=== PATIENT | female | born 1935 | race African-American/Black ===

== ENCOUNTER 2017-02-05 20:50 | Emergency (ER) | payer MEDICARE ==
[~2017-02-05] VITALS: Ht 165.1 cm; Wt 90.0 kg
[~2017-02-05 20:50] MED LIST: ACYC1CAP16 PO; ASPI325T PO; DILT240C7 PO; GABA300 PO; HYDR-3533 PO; PROT40TA PO; SPIR25TA PO
[2017-02-05 20:52] VITALS: BP 183/91; PULSE 67; RESP 18; TEMP 98.9; O2SAT 96
--- NOTE | 2017-02-05 21:32 | PD ---
Physical Exam Date Seen by Provider: Feb 05, 2017 Time Seen by Provider: 21:23 Narrative 82 YOBF C/O L LEG SWELLING AND PAIN. ALSO L GROIN PAIN FOR 3 DAYS. NO CP/SOB OR PALP. NO TRAUMA. H/O SAME WITH DVT 4YRS AGO VS NOTED. PT AWAITING BED PLACEMENT. Data Data Last Documented VS Vital Signs Date Time Temp Pulse Resp B/P Pulse Ox O2 Delivery O2 Flow Rate FiO2 02/05/17 20:52 98.9 67 18 183/91 96 Room Air [facility] Medical Record Reviewed: Yes Supervised Visit with MATTHEW: Yes Luis Alfredo Medina Feb 05, 2017 21:32
[2017-02-05 22:28] VITALS: BP 175/89
[2017-02-05] MEDS ORDERED: SPIR25TA PO (22:37)
[2017-02-05] MEDS ORDERED: CART240C PO (22:37)
[2017-02-05] MEDS ORDERED: CLON0.1T PO (22:37)
[2017-02-05] MEDS ORDERED: ASPI81CH CHEW (22:37)
[2017-02-05 23:07] LABS: AUTOMATED NEUTROPHIL # 2.7 TH/MM3 (1.8-7.7); BASOPHIL % 0.5 % (0.0-2.0); EOSINOPHIL # 0.1 TH/MM3 (0-0.4); EOSINOPHIL % 1.9 % (0.0-4.0); HEMATOCRIT 34.9 % (35.0-46.0); HEMO FLAGS DIFF FINAL; LYMPH % 38.4 % (9.0-44.0); LYMPHOCYTE # 2.1 TH/MM3 (1.0-4.8); MEAN CELL VOLUME 90.3 FL (80.0-100.0); MEAN CORPUSCULAR HEMOGLOBIN 31.6 PG (27.0-34.0); MEAN CORPUSCULAR HGB CONC 34.9 % (32.0-36.0); NEUT % 49.2 % (16.0-70.0); PLATELET COUNT 262 TH/MM3 (150-450); RED BLOOD COUNT 3.86 MIL/MM3 (4.00-5.30); RED CELL DISTRIBUTION WIDTH 13.5 % (11.6-17.2); WHITE BLOOD COUNT 5.5 TH/MM3 (4.0-11.0)
--- NOTE | 2017-02-05 23:09 | PD ---
HPI Chief Complaint: Pain: Acute or Chronic Time Seen by Provider: 22:41 Travel History International Travel<30 days: No Contact w/Intl Traveler<30days: No Traveled to known affect area: No History of Present Illness HPI Send 82-year-old woman presents to the emergency department complaining of left leg pain and swelling ongoing for the past 3 days. She is a history of left lower extremity DVT in 2004. Unclear what prompted that. She was on warfarin for short period of time. She's done well since then. No recurrent episodes. She worsening pain and swelling over the past 2-3 days. Along with this she's also had some low four-quadrant abdominal pain is been ongoing for the past 4 months or so. She's had a little bit constipation symptoms. No diarrhea. No urinary symptoms. No other complaints. No constitutional symptoms such as fevers night sweats or weight loss. History Past Medical History Narrative Medical Hypertension PNEUMOCCOCAL Vaccine (Year): 2 Menopausal: Yes Social History Alcohol Use: No Tobacco Use: No Allergies-Medications (Allergen,Severity, Reaction): Coded Allergies: BRITTANY Inhibitors (Verified Allergy, Intermediate, ANGIOEDEMA, 02/05/17) Reported Meds & Prescriptions Reported Meds & Active Scripts Active Reported Aspirin 81 Mg Chew 81 Mg CHEW DAILY Cartia Xt (Diltiazem ER 24 HR) 240 Mg Caper 240 Mg PO DAILY Spironolactone 25 Mg Tab 25 Mg PO DAILY Clonidine (Clonidine HCl) 0.1 Mg Tab 0.1 Mg PO DAILY Review of Systems Except as stated in HPI: all other systems reviewed are Neg Physical Exam Narrative GENERAL: 82-year-old woman, generally well-appearing, no acute distress. SKIN: Focused skin assessment warm/dry. HEAD: Atraumatic. Normocephalic. CARDIOVASCULAR: Regular rate and rhythm. No murmur appreciated. RESPIRATORY: No accessory muscle use. Clear to auscultation. Breath sounds equal bilaterally. GASTROINTESTINAL: Abdomen soft, non-tender, nondistended. Hepatic and splenic margins not palpable. MUSCULOSKELETAL: No obvious deformities. Left leg edema. She has some calf tenderness. Good pulses. Well-perfused. NEUROLOGICAL: Awake and alert. No obvious cranial nerve deficits. Motor grossly within normal limits. Normal speech. Data Data Last Documented VS Vital Signs Date Time Temp Pulse Resp B/P Pulse Ox O2 Delivery O2 Flow Rate FiO2 02/05/17 22:28 175/89 02/05/17 20:52 98.9 67 18 96 Room Air Orders Complete Blood Count With Diff (02/05/17 22:50) Comprehensive Metabolic Panel (02/05/17 22:50) Act Partial Throm Time (Ptt) (02/05/17 22:50) Prothrombin Time / Inr (Pt) (02/05/17 22:50) Us Leg Venous Doppler (02/05/17 ) Labs Laboratory Tests Test 02/05/17 22:50 White Blood Count 5.5 TH/MM3 Red Blood Count 3.86 MIL/MM3 Hemoglobin 12.2 GM/DL Hematocrit 34.9 % Mean Corpuscular Volume 90.3 FL Mean Corpuscular Hemoglobin 31.6 PG Mean Corpuscular Hemoglobin 34.9 % Concent Red Cell Distribution Width 13.5 % Platelet Count 262 TH/MM3 Mean Platelet Volume 8.3 FL Neutrophils (%) (Auto) 49.2 % Lymphocytes (%) (Auto) 38.4 % Monocytes (%) (Auto) 10.0 % Eosinophils (%) (Auto) 1.9 % Basophils (%) (Auto) 0.5 % Neutrophils # (Auto) 2.7 TH/MM3 Lymphocytes # (Auto) 2.1 TH/MM3 Monocytes # (Auto) 0.5 TH/MM3 Eosinophils # (Auto) 0.1 TH/MM3 Basophils # (Auto) 0.0 TH/MM3 CBC Comment DIFF FINAL Differential Comment Prothrombin Time 10.7 SEC Prothromb Time International 1.0 RATIO Ratio Activated Partial 28.5 SEC Thromboplast Time Sodium Level 138 MEQ/L Potassium Level 3.7 MEQ/L Chloride Level 103 MEQ/L Carbon Dioxide Level 28.6 MEQ/L Anion Gap 6 MEQ/L Blood Urea Nitrogen 18 MG/DL Creatinine 0.70 MG/DL Estimat Glomerular Filtration 97 ML/MIN Rate Random Glucose 106 MG/DL Calcium Level 9.3 MG/DL Total Bilirubin 0.3 MG/DL Aspartate Amino Transf 23 U/L (AST/SGOT) Alanine Aminotransferase 22 U/L (ALT/SGPT) Alkaline Phosphatase 135 U/L Total Protein 7.8 GM/DL Albumin 4.1 GM/DL [facility] Medical Decision Making Medical Screen Exam Complete: Yes Emergency Medical Condition: Yes Interpretation(s) LABS: CBC is unremarkable. CMP is unremarkable. Coags are unremarkable Ultrasound negative for DVT. Differential Diagnosis DVT, ruptured Conley cyst, arterial disease, other Narrative Course Medical decision making 82-year-old with left leg pain and swelling 3 days, suspicious for DVT. We'll check labs, ultrasound, reassess. Diagnosis Primary Impression: Left leg pain Patient Instructions: General Instructions Additional Instructions: Take Tylenol as needed for leg pain. Follow-up with your primary doctor in the next 2-4 days. Return to the emergency department for any new or worsening symptoms. Med/Other Pt SpecificInfo: No Change to Meds Disposition: 01 DISCHARGE HOME Condition: Stable Darshan Castorena MD Feb 05, 2017 23:09
[2017-02-05 23:17] LABS: APTT (PATIENT) 28.5 SEC (24.3-30.1); PROTHROMBIN TIME - PATIENT 10.7 SEC (9.8-11.6)
[2017-02-05 23:23] LABS: ANION GAP 6 MEQ/L (5-15); AST (GOT) 23 U/L (15-37); BICARBONATE 28.6 MEQ/L (21.0-32.0); BLOOD UREA NITROGEN 18 MG/DL (7-18); CHLORIDE 103 MEQ/L (98-107); GLOMERULAR FILTRATION RATE 97 ML/MIN (>89); POTASSIUM 3.7 MEQ/L (3.5-5.1); SODIUM (NA) 138 MEQ/L (136-145)
[2017-02-05 23:26] LABS: ALKALINE PHOSPHATASE 135 U/L (45-117); ALT (GPT) 22 U/L (10-53); TOTAL BILIRUBIN ADULT 0.3 MG/DL (0.2-1.0)
--- NOTE | 2017-02-06 00:16 | RADRPT ---
EXAM DATE/TIME: 02/05/2017 23:06 [facility] COMPARISON: No previous studies available for comparison. INDICATIONS : Left leg swelling. MEDICAL HISTORY : Hypercholesterolemia. Deep venous thrombosis. Gastroesophageal reflux disease. Anticoagulant thera py, Aspirin. Afib. Hypertension. Hiatal hernia. Arthritis. Osteoporosis. Right breast cancer. Chemoth erapy. Radiation therapy. Measles. Blood transfusion. SURGICAL HISTORY : Tubal ligation. Right breast lumpectomy. Hernia repair. ENCOUNTER: Subsequent ACUITY: 1 day PAIN SCORE: 7/10 LOCATION: Left leg. TECHNIQUE: Venous ultrasound of the leg was performed from the inguinal ligament to the proximal calf. Real-lane e, color Doppler and spectral tracing, compression and augmentation techniques were used. FINDINGS: There is normal compressibility of the deep venous system from the inguinal region to the proximal ca lf. No echogenic clot is seen in the lumen of the common femoral, femoral, popliteal, and posterior tibial veins. There is a normal response of the venous system to proximal and distal augmentation an d respiration. CONCLUSION: No DVT left leg. Eliseo Finn MD on February 06, 2017 at 0:14 Board Certified Radiologist. This report was verified electronically.
[2017-02-06 01:08] VITALS: BP 167/65
[2017-02-06] MEDS: NAPROXEN 500 MG TAB PO ONE (01:09)
== END 2017-02-06 01:09 | disposition home or self-care (01) ==
LOC: NEPC 20:50
DX: M79.605 Pain in left leg (principal); M79.89 Other specified soft tissue disorders; I10 Essential (primary) hypertension; Z86.718 Personal history of other venous thrombosis and embolism
CPT/HCPCS: 80053; 85025; 85610; 85730; 93971

== ENCOUNTER 2017-03-01 16:09 | Emergency (ER) | payer MEDICARE ==
[~2017-03-01] VITALS: Ht 165.1 cm; Wt 90.0 kg
[~2017-03-01 16:09] MED LIST changes: -ACYC1CAP16 PO; -ASPI325T PO; +ASPI81CH CHEW; +CART240C PO; +CLON0.1T PO; -DILT240C7 PO; -GABA300 PO; -HYDR-3533 PO; -PROT40TA PO
[2017-03-01 16:12] VITALS: BP 191/93; PULSE 86; RESP 14; TEMP 98.5; O2SAT 98
--- NOTE | 2017-03-01 18:26 | RADRPT ---
EXAM DATE/TIME: 03/01/2017 18:26 [facility] COMPARISON: No previous studies available for comparison. INDICATIONS : Right shoulder pain for a day. No known injury. MEDICAL HISTORY : None. SURGICAL HISTORY : None. ENCOUNTER: Initial ACUITY: 1 day PAIN SCORE: 9/10 LOCATION: Right shoulder. FINDINGS: Multiple views of the right shoulder were obtained and demonstrate mild osteopenia and normal alignme nt. Degenerative changes are present in the acromioclavicular joint with spurring. There are mild deg enerative changes in the glenohumeral joint. There is no acute fracture or malalignment. The soft tis sues are unremarkable. CONCLUSION: 1. Degenerative change in the acromioclavicular joint. 2. Mild degenerative change in the glenohumeral joint. Hipolito Bettencourt MD on March 01, 2017 at 18:22 Board Certified Radiologist. This report was verified electronically.
[2017-03-01] MEDS ORDERED: CYCLOBENZAPRINE HCL 10 MG TAB PO ONE (19:00)
[2017-03-01] MEDS ORDERED: IBUPROFEN 800 MG TAB PO ONE (19:00)
[2017-03-01] MEDS ORDERED: CYCL5TAB PO (20:11)
[2017-03-01] MEDS ORDERED: IBUP-232 PO (20:11)
--- NOTE | 2017-03-01 20:12 | PD ---
HPI Chief Complaint: Pain: Acute or Chronic Time Seen by Provider: 18:55 Travel History International Travel<30 days: No Contact w/Intl Traveler<30days: No Traveled to known affect area: No History of Present Illness HPI Patient is an 82-year-old female presenting to emergency for evaluation of right shoulder pain. Patient states the pain started 2 PM this afternoon while she was doing laundry. Patient kept doing her chores, the pain worsened slightly so she presented to the emergency department for evaluation. Patient denies any chest pain, shortness of breath, headache, radiation of the pain. She states it hurts when she moves her shoulder. She reports the pain as a 5 out of 10 and describes it as sore. She has no other complaints at this time. Patient has not taken anything to alleviate the pain. PFSH Past Medical History Hx Anticoagulant Therapy: Yes (ASPIRIN) Arthritis: Yes Asthma: No Atrial Fibrillation: Yes Autoimmune Disease: No Blood Disorders: No Cancer: Yes (RT BREAST) Cardiovascular Problems: Yes High Cholesterol: Yes Chemotherapy: Yes Chest Pain: Yes Congestive Heart Failure: No COPD: No Cerebrovascular Accident: No Diabetes: No Diminished Hearing: No Deep Vein Thrombosis: Yes Endocrine: No Gastrointestinal Disorders: No GERD: Yes Genitourinary: No Headaches: Yes Hepatitis: No Hiatal Hernia: Yes Hypertension: Yes Kidney Stones: No Musculoskeletal: Yes Neurologic: No Psychiatric: No Reproductive: No Respiratory: No Immunizations Current: Yes Migraines: No Myocardial Infarction: No Radiation Therapy: Yes Renal Failure: No Seizures: No Sickle Cell Disease: No Sleep Apnea: No Ulcer: No Tetanus Vaccination: < 5 Years Influenza Vaccination: No PNEUMOCCOCAL Vaccine (Year): 2 Menopausal: Yes Tubal Ligation: Yes Past Surgical History Abdominal Surgery: Yes (HERNIA REPAIR) Appendectomy: No Cardiac Surgery: No Cholecystectomy: No Endocrine Surgery: No Eye Surgery: No Genitourinary Surgery: No Gynecologic Surgery: Yes (LUMPECTOMY R BREAST) Neurologic Surgery: No Oral Surgery: No Thoracic Surgery: No Other Surgery: No Social History Alcohol Use: No Tobacco Use: No Substance Use: No Allergies-Medications (Allergen,Severity, Reaction): Coded Allergies: BRITTANY Inhibitors (Verified Allergy, Intermediate, ANGIOEDEMA, 03/01/17) Reported Meds & Prescriptions Reported Meds & Active Scripts Active Reported Aspirin 81 Mg Chew 81 Mg CHEW DAILY Cartia Xt (Diltiazem ER 24 HR) 240 Mg Caper 240 Mg PO DAILY Spironolactone 25 Mg Tab 25 Mg PO DAILY Clonidine (Clonidine HCl) 0.1 Mg Tab 0.1 Mg PO DAILY Review of Systems Except as stated in HPI: all other systems reviewed are Neg Musculoskeletal: Positive: Myalgias Physical Exam Narrative GENERAL: Well-developed, well-nourished, alert female. Resting comfortably in no acute distress. SKIN: Focused skin assessment warm/dry. HEAD: Atraumatic. Normocephalic. EYES: Pupils equal and round. No scleral icterus. No injection or drainage. ENT: No nasal bleeding or discharge. Mucous membranes pink and moist. NECK: Trachea midline. No JVD. CARDIOVASCULAR: Regular rate and rhythm. No murmur appreciated. RESPIRATORY: No accessory muscle use. Clear to auscultation. Breath sounds equal bilaterally. GASTROINTESTINAL: Abdomen soft, non-tender, nondistended. Hepatic and splenic margins not palpable. MUSCULOSKELETAL: No obvious deformities. No clubbing. No cyanosis. No edema. Full range of motion in right shoulder with rotation, abduction, flexion. Tenderness palpation on the anterior shoulder and right axillary area. NEUROLOGICAL: Awake and alert. No obvious cranial nerve deficits. Motor grossly within normal limits. Normal speech. PSYCHIATRIC: Appropriate mood and affect; insight and judgment normal. Data Data Last Documented VS Vital Signs Date Time Temp Pulse Resp B/P Pulse Ox O2 Delivery O2 Flow Rate FiO2 03/01/17 16:12 98.5 86 14 191/93 98 Orders Shoulder, Complete (>2vws) (03/01/17 ) Ibuprofen (Motrin) (03/01/17 19:00) Cyclobenzaprine (Flexeril) (03/01/17 19:00) [facility] Medical Decision Making Medical Screen Exam Complete: Yes Emergency Medical Condition: Yes Interpretation(s) Vital Signs Date Time Temp Pulse Resp B/P Pulse Ox O2 Delivery O2 Flow Rate FiO2 03/01/17 16:12 98.5 86 14 191/93 98 Differential Diagnosis Muscle strain versus fracture versus dislocation versus other Narrative Course Patient is an 82-year-old female presenting to emergency for evaluation of right shoulder pain that started 2 PM after doing laundry and chores at home. Patient is tenderness. The right anterior shoulder at right axillary area. Patient's vital signs are stable, x-ray of the right shoulder shows degenerative changes in the acromioclavicular joint, mild degenerative change in the glenohumeral joint. She was given ibuprofen and Flexeril in the emergency department, she was reassessed 1 hour later reports improvement in her pain. Discharged home with descriptions for the same. She is encouraged to continue range of motion exercises, she is advised to follow up with primary doctor. Furthermore patient was advised to return to emergency department immediately for any new or worsening symptoms. Patient verbalized understanding of instructions. Patient is stable for discharge. Diagnosis Primary Impression: Shoulder pain Qualified Code: M25.511 - Right shoulder pain, unspecified chronicity Additional Impressions: Arthritis Myalgia Referrals: Primary Care Physician Patient Instructions: General Instructions, Muscle Strain (ED), Shoulder Pain ( ED) Additional Instructions: Follow-up with her primary doctor Take medications as directed Return to emergency department for any new or worsening symptoms Continue range of motion exercises, apply warm moist heat to affected area, avoid exacerbating activities Med/Other Pt SpecificInfo: Prescription(s) given Scripts Cyclobenzaprine (Flexeril)5 Mg Tab5 Mg PO BID PRN (MUSCLE SPASM) 7 Days Ref 0 Prov:Nighat Alvarado 03/01/17 Ibuprofen 600 Mg [id number] Mg PO Q8HR PRN (PAIN) 10 Days Ref 0 Prov:Nighat Alvarado 03/01/17 Disposition: 01 DISCHARGE HOME Condition: Stable Nighat Alvarado March 01, 2017 20:12
[2017-03-01 20:35] VITALS: BP 179/61
[2017-05-01] MEDS ORDERED: DILT240C7 PO (15:18)
[2017-05-01] MEDS ORDERED: SPIR25TA PO (15:21)
[2017-05-01] MEDS ORDERED: CLON0.1T PO (15:21)
== END 2017-03-01 20:36 | disposition home or self-care (01) ==
LOC: NEPD 16:09
DX: M25.511 Pain in right shoulder (principal); M79.1 Myalgia; M19.90 Unspecified osteoarthritis, unspecified site
CPT/HCPCS: 73030; 99283

== ENCOUNTER 2017-11-10 10:48 | Emergency (ER) | payer MEDICARE ==
[~2017-11-10] VITALS: Ht 165.1 cm; Wt 89.4 kg
[~2017-11-10 10:48] MED LIST changes: +ASPI-516 CHEW; -ASPI81CH CHEW; -CART240C PO; +CHLO25TA2 PO; +DICL50TA PO; +DILT240C7 PO; -SPIR25TA PO
[2017-11-10 10:57] VITALS: BP 158/87; PULSE 74; RESP 16; TEMP 99.3; O2SAT 96
--- NOTE | 2017-11-10 12:20 | PD ---
HPI Chief Complaint: Cold / Flu Symptoms Time Seen by Provider: 11:06 Travel History International Travel<30 days: No Contact w/Intl Traveler<30days: No Traveled to known affect area: No History of Present Illness HPI 82-year-old female here with cough, congestion, fever 2 days. Symptom severity is moderate. No aggravating or alleviating factors. She denies chest pain, palpitations, shortness of breath, nausea, vomiting, diarrhea. PFSH Past Medical History Hx Anticoagulant Therapy: Yes (baby ASA) Arthritis: Yes Asthma: No Atrial Fibrillation: Yes Autoimmune Disease: No Blood Disorders: No Heart Rhythm Problems: Yes Cancer: Yes (RT BREAST) Cardiovascular Problems: Yes (HTN) High Cholesterol: Yes Chemotherapy: Yes Chest Pain: Yes Congestive Heart Failure: No COPD: No Cerebrovascular Accident: No Diabetes: No Diminished Hearing: No Deep Vein Thrombosis: Yes Endocrine: No Gastrointestinal Disorders: No GERD: Yes Genitourinary: No Headaches: Yes Hepatitis: No Hiatal Hernia: Yes Hypertension: Yes Kidney Stones: No Musculoskeletal: Yes Neurologic: No Psychiatric: No Reproductive: No Respiratory: No Immunizations Current: Yes Migraines: No Myocardial Infarction: No Radiation Therapy: Yes Renal Failure: No Seizures: No Sickle Cell Disease: No Sleep Apnea: No Ulcer: No Tetanus Vaccination: Unknown PNEUMOCCOCAL Vaccine (Year): 2 ?: Not Menopausal: Yes Tubal Ligation: Yes Past Surgical History Abdominal Surgery: Yes (HERNIA REPAIR) Appendectomy: No Cardiac Surgery: No Cholecystectomy: No Endocrine Surgery: No Eye Surgery: No Genitourinary Surgery: No Gynecologic Surgery: Yes (LUMPECTOMY R BREAST) Neurologic Surgery: No Oral Surgery: No Thoracic Surgery: No Other Surgery: No Social History Alcohol Use: No Tobacco Use: No Substance Use: No Allergies-Medications (Allergen,Severity, Reaction): Coded Allergies: benazepril (Unverified Allergy, Intermediate, ANGIOEDEMA, 11/10/17) captopril (Unverified Allergy, Intermediate, ANGIOEDEMA, 11/10/17) enalaprilat (Unverified Allergy, Intermediate, ANGIOEDEMA, 11/10/17) fosinopril (Unverified Allergy, Intermediate, ANGIOEDEMA, 11/10/17) lisinopril (Unverified Allergy, Intermediate, ANGIOEDEMA, 11/10/17) quinapril (Unverified Allergy, Intermediate, ANGIOEDEMA, 11/10/17) Reported Meds & Prescriptions Reported Meds & Active Scripts Active Chlorthalidone 25 Mg Tab 25 Mg PO DAILY Diclofenac Potassium 50 Mg Tab 50 Mg PO BID Aspirin 81 Mg Chew 162 Mg CHEW DAILY Diltiazem ER 24 HR (Diltiazem HCl) 240 Mg Caper 240 Mg PO DAILY Clonidine (Clonidine HCl) 0.1 Mg Tab 0.1 Mg PO DAILY Review of Systems Except as stated in HPI: all other systems reviewed are Neg General / Constitutional: Positive: Fever Eyes: No: Visual changes HENT: No: Headaches Cardiovascular: No: Chest Pain or Discomfort Respiratory: Positive: Cough Gastrointestinal: No: Abdominal Pain Genitourinary: No: Dysuria Musculoskeletal: Positive: Myalgias Skin: No Rash Neurologic: No: Weakness Physical Exam Narrative GENERAL: Alert well-appearing 82-year-old female resting comfortably on the stretcher. She is nontoxic-appearing. SKIN: Warm and dry. HEAD: Normocephalic. EYES: No scleral icterus. No injection or drainage. NECK: Supple, trachea midline. No JVD or lymphadenopathy. CARDIOVASCULAR: Regular rate and rhythm without murmurs, gallops, or rubs. RESPIRATORY: Breath sounds equal bilaterally. No accessory muscle use. Rhonchorous cough. Mild expiratory wheeze which clears with cough. GASTROINTESTINAL: Abdomen soft, non-tender, nondistended. MUSCULOSKELETAL: No cyanosis, or edema. BACK: Nontender without obvious deformity. No CVA tenderness. Data Data Last Documented VS Vital Signs Date Time Temp Pulse Resp B/P (MAP) Pulse Ox O2 Delivery O2 Flow Rate FiO2 11/10/17 10:57 99.3 74 16 158/87 (110) 96 Orders Orders Influenzae A/B Antigen (11/10/17 11:41) Chest, Single Ap (11/10/17 ) MDM Medical Decision Making Medical Screen Exam Complete: Yes Emergency Medical Condition: Yes Interpretation(s) Influenza A positive Differential Diagnosis Influenza, pneumonia, bronchitis Narrative Course 82-year-old female here with flulike illness and a rhonchorous cough. Vital signs are stable. She is well-appearing. Influenza A positive. chest x-ray negative for pneumonia. Given the patient's age and the rhonchorous cough she will be covered with Tamiflu and azithromycin. Patient is to follow-up with her primary doctor on Monday for recheck or return to the emergency department if she develops new or worsening symptoms. Diagnosis Primary Impression: Influenza A Additional Impression: Bronchitis Referrals: Primary Care Physician Additional Instructions: Medications as prescribed. Drink plenty of fluids. Tylenol or ibuprofen for fever and pain. Follow-up with her primary doctor. Return if he developed new or worsening symptoms. Scripts Benzonatate (Tessalon Perles) 100 Mg Cap 100 MG PO TID Y for COUGH, #12 CAP 0 Refills Prov: Nova Villanueva 11/10/17 Prednisone (Prednisone) 20 Mg Tab 40 MG PO DAILY, #8 TAB 0 Refills Take 40 mg (2 tablets) daily for 5 days Prov: Nova Villanueva 11/10/17 Albuterol 8.5 GM Inh (Proair Hfa 8.5 GM Inh) 90 Mcg/Act Aer 2 PUFF INH Q4-6H Y for SHORTNESS OF BREATH, #1 INHALER 0 Refills 108 mcg/actuation Prov: Nova Villanueva 11/10/17 Azithromycin (Azithromycin) 250 Mg Tab 250 MG PO DIRECTED for Infection, #6 TAB 0 Refills Take 2 tabs (500 mg) on day 1 then 1 tab daily x 4 days. Prov: Nova Villanueva 11/10/17 Oseltamivir (Tamiflu) 75 Mg Cap 75 MG PO BID for Mgmt Viral Infection for 5 Days, #10 CAP 0 Refills Prov: Nova Villanueva 11/10/17 Nova Villanueva Nov 10, 2017 12:20
--- NOTE | 2017-11-10 12:38 | RADRPT ---
EXAM DATE/TIME: 11/10/2017 12:09 [facility] COMPARISON: CHEST SINGLE AP, October 12, 2015, 19:36. INDICATIONS : Cough MEDICAL HISTORY : Hypertension. Deep venous thrombosis. Carcinoma, breast. AFib SURGICAL HISTORY : Right lumpectomy, Hiatal hernia ENCOUNTER: Initial ACUITY: 2 days PAIN SCORE: 0/10 LOCATION: Bilateral chest FINDINGS: Mild basilar scarring. Tortuous aorta. Mild cardiomegaly. No pneumothorax. Surgical clips right axill jennifer region. CONCLUSION: 1. No acute findings. Minimal basilar lung scarring. Tortuous aorta. Luis Alfredo Mina MD on November 10, 2017 at 12:33 Board Certified Radiologist. This report was verified electronically.
[2017-11-10] MEDS ORDERED: PRED20 PO (12:49)
[2017-11-10] MEDS ORDERED: BENZ100 PO (12:49)
[2017-11-10] MEDS ORDERED: ALBUAER3 INH (12:49)
[2017-11-10] MEDS ORDERED: AZIT250T3 PO (12:49)
[2017-11-10] MEDS ORDERED: OSEL75 PO (12:49)
== END 2017-11-10 12:56 | disposition home or self-care (01) ==
LOC: PHEFT 10:48
DX: J09.X2 Influenza due to identified novel influenza A virus with other respiratory manifestations (principal); J40 Bronchitis, not specified as acute or chronic; R50.9 Fever, unspecified; R09.89 Other specified symptoms and signs involving the circulatory and respiratory systems; I48.91 Unspecified atrial fibrillation; I10 Essential (primary) hypertension; E78.00 Pure hypercholesterolemia, unspecified; Z79.82 Long term (current) use of aspirin; Z87.39 Personal history of other diseases of the musculoskeletal system and connective tissue; Z85.3 Personal history of malignant neoplasm of breast; Z86.718 Personal history of other venous thrombosis and embolism; Z87.19 Personal history of other diseases of the digestive system
CPT/HCPCS: 71045; 87804; 99284

== ENCOUNTER 2018-01-20 21:38 | Emergency (ER) | payer MEDICARE ==
[~2018-01-20 21:38] MED LIST changes: +ALBUAER3 INH; +AZIT250T3 PO; +BENZ100 PO; +OSEL75 PO; +PRED20 PO
[2018-01-20 21:40] VITALS: BP 216/101; PULSE 82; RESP 20; TEMP 98.3; O2SAT 97
[2018-01-20] MEDS ORDERED: RABE1TAB PO (22:00)
[2018-01-20] MEDS ORDERED: MOBI15TA PO (22:00)
[2018-01-20] MEDS ORDERED: CART120C PO (22:00)
[2018-01-20] MEDS ORDERED: CYCL10TA PO (22:00)
[2018-01-20 22:30] VITALS: BP 138/67; PULSE 63; RESP 18; O2SAT 97
--- NOTE | 2018-01-20 22:30 | PD ---
HPI Chief Complaint: Chest Pain Time Seen by Provider: 22:10 Travel History International Travel<30 days: No Contact w/Intl Traveler<30days: No Traveled to known affect area: No History of Present Illness HPI The patient is an 83-year-old female with no known history of heart disease who complains of a sharp chest pain that sometimes radiates down the left arm and up into the neck that began last night. It let up some today but came back this afternoon. The pain is in the left anterior chest and the pain is constant. She denies any nausea or diaphoresis but does have some shortness of breath. She does not smoke or drink alcohol. 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 She had a stress test 2 years ago which was normal. PFSH Past Medical History Hx Anticoagulant Therapy: Yes (ASA) Arthritis: Yes Asthma: No Atrial Fibrillation: Yes Autoimmune Disease: No Blood Disorders: No Heart Rhythm Problems: Yes Cancer: Yes (RT BREAST) Cardiovascular Problems: Yes (HTN) High Cholesterol: Yes Chemotherapy: Yes Chest Pain: Yes Congestive Heart Failure: No COPD: No Cerebrovascular Accident: No Diabetes: No Diminished Hearing: No Deep Vein Thrombosis: Yes Endocrine: No Gastrointestinal Disorders: No GERD: Yes Genitourinary: No Headaches: Yes Hepatitis: No Hiatal Hernia: Yes Hypertension: Yes Kidney Stones: No Musculoskeletal: Yes Neurologic: No Psychiatric: No Reproductive: No Respiratory: No Immunizations Current: Yes Migraines: No Myocardial Infarction: No Radiation Therapy: Yes Renal Failure: No Seizures: No Sickle Cell Disease: No Sleep Apnea: No Ulcer: No Tetanus Vaccination: Unknown Influenza Vaccination: No PNEUMOCCOCAL Vaccine (Year): 2 Menopausal: Yes Tubal Ligation: Yes Past Surgical History Abdominal Surgery: Yes (HERNIA REPAIR) Appendectomy: No Cardiac Surgery: No Cholecystectomy: No Endocrine Surgery: No Eye Surgery: No Genitourinary Surgery: No Gynecologic Surgery: Yes (LUMPECTOMY R BREAST) Neurologic Surgery: No Oral Surgery: No Thoracic Surgery: No Other Surgery: No Social History Alcohol Use: No Tobacco Use: No Substance Use: No Allergies-Medications (Allergen,Severity, Reaction): Coded Allergies: benazepril (Unverified Allergy, Intermediate, ANGIOEDEMA, 01/20/18) captopril (Unverified Allergy, Intermediate, ANGIOEDEMA, 01/20/18) enalaprilat (Unverified Allergy, Intermediate, ANGIOEDEMA, 01/20/18) fosinopril (Unverified Allergy, Intermediate, ANGIOEDEMA, 01/20/18) lisinopril (Unverified Allergy, Intermediate, ANGIOEDEMA, 01/20/18) quinapril (Unverified Allergy, Intermediate, ANGIOEDEMA, 01/20/18) Reported Meds & Prescriptions Reported Meds & Active Scripts Active Chlorthalidone 25 Mg Tab 25 Mg PO DAILY Aspirin 81 Mg Chew 162 Mg CHEW DAILY Diltiazem ER 24 HR (Diltiazem HCl) 240 Mg Caper 240 Mg PO DAILY Clonidine (Clonidine HCl) 0.1 Mg Tab 0.1 Mg PO DAILY Reported Mobic (Meloxicam) 15 Mg Tab 15 Mg PO DAILY Flexeril (Cyclobenzaprine HCl) 10 Mg Tab 10 Mg PO TID PRN Rabeprazole (Rabeprazole Sodium) 20 Mg Tab 20 Mg PO DAILY Review of Systems Except as stated in HPI: all other systems reviewed are Neg Physical Exam Narrative GENERAL: Her vital signs show blood pressure 216/101 but are otherwise normal. SKIN: No rashes, ecchymoses or lesions. Cool and dry. HEAD: Atraumatic. Normocephalic. EYES: Pupils equal and round. No scleral icterus. No injection or drainage. ENT: No nasal bleeding or discharge. Mucous membranes pink and moist. NECK: Trachea midline. No JVD. CARDIOVASCULAR: Regular rate and rhythm. No murmur appreciated. I can completely reproduce the patient's pain by pressing on the chest wall on the left where she perceives her pain. RESPIRATORY: No accessory muscle use. Clear to auscultation. Breath sounds equal bilaterally. GASTROINTESTINAL: Abdomen soft, non-tender, nondistended. Hepatic and splenic margins not palpable. MUSCULOSKELETAL: No obvious deformities. No clubbing. No cyanosis. No edema. NEUROLOGICAL: Awake and alert. No obvious cranial nerve deficits. Motor grossly within normal limits. Normal speech. PSYCHIATRIC: Appropriate mood and affect; insight and judgment normal. Data Data Last Documented VS Vital Signs Date Time Temp Pulse Resp B/P (MAP) Pulse Ox O2 Delivery O2 Flow Rate FiO2 01/20/18 23:15 72 20 138/67 (90) 98 01/20/18 22:30 Room Air 01/20/18 22:00 2.00 01/20/18 21:40 98.3 Orders Orders Electrocardiogram (01/20/18 21:49) Electrocardiogram (01/20/18 22:56) Basic Metabolic Panel (Bmp) (01/20/18 22:56) Ckmb (Isoenzyme) Profile (01/20/18 22:56) Complete Blood Count With Diff (01/20/18 22:56) Magnesium (Mg) (01/20/18 22:56) Prothrombin Time / Inr (Pt) (01/20/18 22:56) Act Partial Throm Time (Ptt) (01/20/18 22:56) Troponin I (01/20/18 22:56) Ecg Monitoring (01/20/18 22:56) Iv Access Insert/Monitor (01/20/18 22:56) Oximetry (01/20/18:56) Oxygen Administration (01/20/18:56) Aspirin Chew (Aspirin Chew) (01/20/18 23:00) Sodium Chloride 0.9% Flush (Ns Flush) (01/20/18 23:00) Chest, Pa & Lat (01/20/18 22:56) Ketorolac Inj (Toradol Inj) (01/21/18 00:00) CKMB (01/20/18 22:30) CKMB% (01/20/18 22:30) Potassium Chloride (Kcl) (01/21/18 01:00) Labs Laboratory Tests Test 01/20/18 22:30 01/20/18 23:15 01/21/18 00:01 Blood Urea Nitrogen 19 MG/DL Creatinine 0.97 MG/DL Random Glucose 155 MG/DL Calcium Level 8.8 MG/DL Magnesium Level 1.9 MG/DL Sodium Level 138 MEQ/L Potassium Level 2.8 MEQ/L Chloride Level 100 MEQ/L Carbon Dioxide Level 29.1 MEQ/L Anion Gap 9 MEQ/L Estimat Glomerular Filtration Rate 67 ML/MIN Total Creatine Kinase 225 U/L Creatine Kinase MB 3.6 NG/ML Creatine Kinase MB % 1.6 % Troponin I LESS THAN 0.02 NG/ML White Blood Count 7.8 TH/MM3 Red Blood Count 3.94 MIL/MM3 Hemoglobin 11.8 GM/DL Hematocrit 35.8 % Mean Corpuscular Volume 90.9 FL Mean Corpuscular Hemoglobin 30.0 PG Mean Corpuscular Hemoglobin Concent 33.0 % Red Cell Distribution Width 13.0 % Platelet Count 320 TH/MM3 Mean Platelet Volume 8.8 FL Neutrophils (%) (Auto) 65.8 % Lymphocytes (%) (Auto) 25.8 % Monocytes (%) (Auto) 7.3 % Eosinophils (%) (Auto) 0.1 % Basophils (%) (Auto) 1.0 % Neutrophils # (Auto) 5.1 TH/MM3 Lymphocytes # (Auto) 2.0 TH/MM3 Monocytes # (Auto) 0.6 TH/MM3 Eosinophils # (Auto) 0.0 TH/MM3 Basophils # (Auto) 0.1 TH/MM3 CBC Comment DIFF FINAL Differential Comment Prothrombin Time 10.4 SEC Prothromb Time International Ratio 1.0 RATIO Activated Partial Thromboplast Time 22.8 SEC MDM Medical Decision Making Medical Screen Exam Complete: Yes Emergency Medical Condition: Yes Medical Record Reviewed: Yes Interpretation(s) The EKG shows moderate voltage criteria for LVH and no acute ST elevation or depression. There is a sinus rhythm with rate of 74. The complete metabolic profile shows a BUN of 19, glucose of 155, potassium 2.8, the cardiac enzymes are normal and the CBC is normal. The coagulation profile is normal except for a PTT of 22.8. Differential Diagnosis Acute coronary syndrome, chest wall pain, pleuritic pain, gastroesophageal pain , electrolyte disorder, anemia Narrative Course The patient appears to have chest wall pain. It is completely reproducible blood pressure on the chest wall. Plan: The patient will continue to take her Mobic and is given Percocet 5 for the pain. She is given 15 tablets. She needs to follow-up with her primary care physician this week. Diagnosis Primary Impression: Chest wall pain Additional Instructions: Follow-up this week with your primary care physician. Take the blood work that we gave you to his office. Do not drink alcohol or drive on the Percocet. The potassium pill is 1 tablet daily. Med/Other Pt SpecificInfo: Prescription(s) given Scripts Oxycodone-Acetaminophen (Percocet) 5-325 mg Tab 2 TAB PO Q4H Y for PAIN, #15 TAB 0 Refills Prov: Fabian Muñoz MD 01/21/18 Potassium Chloride ER (K-Tab) 20 Meq Tab 20 MEQ PO DAILY for Electrolyte Replacement, #30 TAB 0 Refills Prov: Fabian Muñoz MD 01/21/18 Disposition: 01 DISCHARGE HOME Condition: Stable Fabian Muñoz MD Jan 20, 2018 22:30
[2018-01-20] MEDS ORDERED: ASPIRIN 81 MG CHEW TAB PO ONE (23:00)
[2018-01-20] MEDS ORDERED: SODIUM CHLORIDE 0.9% FLUSH 10 ML FLUSH IVF PRN (23:00)
[2018-01-20 23:15] VITALS: BP 138/67; PULSE 72; RESP 20; O2SAT 98
--- NOTE | 2018-01-20 23:22 | RADRPT ---
EXAM DATE/TIME: 01/20/2018 23:02 [facility] COMPARISON: CHEST SINGLE AP, November 10, 2017, 12:09. INDICATIONS : Chest pain. MEDICAL HISTORY : Hypertension. Deep venous thrombosis. Carcinoma, breast. AFib SURGICAL HISTORY : Right lumpectomy, Hiatal hernia ENCOUNTER: Initial ACUITY: 1 day PAIN SCORE: 7/10 LOCATION: Bilateral chest FINDINGS: PA and lateral views of the chest demonstrate the lungs to be symmetrically aerated without evidence of mass, infiltrate or effusion. Mild atherosclerotic changes are again noted in the aorta. There is minimal scarring at the right lung base . The cardiomediastinal contours are unremarkable. Osseous structures are intact. CONCLUSION: No acute disease. Hipolito Bettencourt MD on January 20, 2018 at 23:19 Board Certified Radiologist. This report was verified electronically.
[2018-01-20 23:38] LABS: AUTOMATED NEUTROPHIL # 5.1 TH/MM3 (1.8-7.7); BASOPHIL # 0.1 TH/MM3 (0-0.2); EOSINOPHIL % 0.1 % (0.0-4.0); HEMATOCRIT 35.8 % (35.0-46.0); HEMOGLOBIN 11.8 GM/DL (11.6-15.3); LYMPH % 25.8 % (9.0-44.0); MEAN CELL VOLUME 90.9 FL (80.0-100.0); MEAN PLATELET VOLUME 8.8 FL (7.0-11.0); MONO % 7.3 % (0.0-8.0); MONOCYTE # 0.6 TH/MM3 (0-0.9); NEUT % 65.8 % (16.0-70.0); PLATELET COUNT 320 TH/MM3 (150-450); RED BLOOD COUNT 3.94 MIL/MM3 (4.00-5.30); WHITE BLOOD COUNT 7.8 TH/MM3 (4.0-11.0)
[2018-01-20 23:47] LABS: BICARBONATE 29.1 MEQ/L (21.0-32.0); BLOOD UREA NITROGEN 19 MG/DL (7-18); CALCIUM 8.8 MG/DL (8.5-10.1); CHLORIDE 100 MEQ/L (98-107); CREATININE 0.97 MG/DL (0.50-1.00); GLOMERULAR FILTRATION RATE 67 ML/MIN (>89); GLUCOSE,RANDOM 155 MG/DL (74-106); MAGNESIUM 1.9 MG/DL (1.5-2.5); SODIUM (NA) 138 MEQ/L (136-145); TROPONIN I LESS THAN 0.02 NG/ML (0.02-0.05)
[2018-01-21] VITALS: BP 176/85; PULSE 72; RESP 20; O2SAT 98
[2018-01-21] MEDS ORDERED: KETOROLAC TROMETHAMINE 60 MG/2 ML (IM) VIAL IVP ONE
[2018-01-21 00:26] LABS: PROTHROMBIN TIME - PATIENT 10.4 SEC (9.8-11.6)
[2018-01-21] MEDS ORDERED: PERC5TAB12 PO (00:56)
[2018-01-21] MEDS ORDERED: POTA1TAB4 PO (00:56)
[2018-01-21] MEDS ORDERED: POTASSIUM CHLORIDE 20 MEQ CONTROLLED RELEASE TAB PO ONE (01:00)
[2018-01-21 01:15] VITALS: BP 169/87
--- NOTE | 2018-01-21 19:52 | EKG ---
Date Performed: 01/20/2018 Time Performed: 21:49:49 PTAGE: 83 years EKG: Sinus rhythm MODERATE VOLTAGE CRITERIA FOR LVH, CONSIDER NORMAL VARIANT NONSPECIFIC T-WAVE ABNORMALITY Since the previous tracing, no significant change noted BORDERLINE ECG PREVIOUS TRACING : 10/12/15 @ 1945 DOCTOR: Ana Estes Interpretating Date/Time 01/21/2018 19:48:58
== END 2018-01-21 01:10 | disposition home or self-care (01) ==
LOC: PHED 21:38
DX: R07.89 Other chest pain (principal); R06.02 Shortness of breath; I10 Essential (primary) hypertension; Z79.899 Other long term (current) drug therapy
CPT/HCPCS: 71046; 80048; 82550; 82552; 83735; 84484; 85025; 85610; 85730; 93005; 96374; 99285; J1885

== ENCOUNTER 2018-02-16 16:41 | Emergency (ER) | payer MEDICARE ==
[~2018-02-16] VITALS: Ht 165.1 cm; Wt 90.0 kg
[~2018-02-16 16:41] MED LIST changes: -ALBUAER3 INH; -AZIT250T3 PO; -BENZ100 PO; +CYCL10TA PO; -DICL50TA PO; +MOBI15TA PO; -OSEL75 PO; +PERC5TAB12 PO; +POTA1TAB4 PO; -PRED20 PO; +RABE1TAB PO
[2018-02-16 16:49] VITALS: BP 181/89; PULSE 64; RESP 16; TEMP 98.5; O2SAT 97
--- NOTE | 2018-02-16 19:08 | RADRPT ---
EXAM DATE/TIME: 02/16/2018 18:17 [facility] COMPARISON: No previous studies available for comparison. INDICATIONS : Left neck pain. RADIATION DOSE: 26.08 CTDIvol (mGy) MEDICAL HISTORY : Carcinoma, breast. Deep venous thrombosis. Gastroesophageal reflux disease.Hypertension. Hiatal jovani ia. SURGICAL HISTORY : Tubal ligation. Hernia repair. Right breast lumpectomy. ENCOUNTER: Initial ACUITY: 1 day PAIN SCALE: 9/10 LOCATION: Left neck TECHNIQUE: Volumetric scanning of the cervical spine was performed. Multiplanar reconstructions in the sagittal, coronal and oblique axial planes were performed. Using automated exposure control and adjustment o f the mA and/or kV according to patient size, radiation dose was kept as low as reasonably achievable to obtain optimal diagnostic quality images. DICOM format image data is available electronically f or review and comparison. FINDINGS: VERTEBRAE: There are focal lucent lesions seen throughout the cervical spine. The largest one is seen at the den s with surrounding sclerosis. This lucent lesion measures up to 1 cm. ALIGNMENT: There is minimal posterior subluxation of C4 on C5. C2-C3: The bony spinal canal is normal in size. No evidence of disc bulge or herniation. The neural forami na are bilaterally patent. C3-C4: The bony spinal canal is normal in size. There is mild diffuse disc bulge. The neural foramina are bi laterally patent. There is mild facet hypertrophy. C4-C5: The disc demonstrates decreased height. Again noted is the posterior subluxation of C4 on C5. There i s mild bulging and osteophytic ridging. There is prominent posterior osteophytic ridging especially a t the posterior disc margin. There is mild facet hypertrophy. The neural foramina are patent bilatera lly. C5-C6: The bony spinal canal is normal in size. There is mild diffuse disc bulge. The neural foramina are bi laterally patent. There is mild facet hypertrophy. C6-C7: There is minimal bulging disc. Significant stenosis is not seen. There is moderate right facet hypert rophy. There is mild left facet hypertrophy. The neural foramina patent bilaterally. C7-T1: The bony spinal canal is normal in size. No evidence of disc bulge or herniation. The neural forami na are bilaterally patent. CONCLUSION: 1. Degenerative change throughout. 2. Multiple lucent lesions seen throughout the cervical spine. These are nonspecific. They could be f rom processes such as severe osteoporosis. Underlying condition such as metastatic disease or multipl e myeloma could conceivably have a similar appearance. They could be further evaluated with a bone sc an at some point. Eusebio Fairbanks MD on February 16, 2018 at 18:58 Board Certified Radiologist. This report was verified electronically.
[2018-02-16] MEDS ORDERED: NORC5TAB PO (19:22)
--- NOTE | 2018-02-16 19:22 | PD ---
HPI Chief Complaint: Back/ Neck Pain or Injury Time Seen by Provider: 17:55 Travel History International Travel<30 days: No Contact w/Intl Traveler<30days: No Traveled to known affect area: No History of Present Illness HPI This is an 83-year-old female here with left-sided neck pain 1 day. No injury or trauma. No fever chills. Denies chest pain, palpitations, shortness of breath. Reports pain is constant, spasming, reproducible to palpation of the left side of the neck and range of motion. Symptom severity is moderate. Slightly alleviated with rest. PFSH Past Medical History Hx Anticoagulant Therapy: Yes (BABY ASA DAILY) Arthritis: Yes Asthma: No Atrial Fibrillation: Yes Autoimmune Disease: No Blood Disorders: No Heart Rhythm Problems: Yes Cancer: Yes (RT BREAST) Cardiovascular Problems: Yes (HTN) High Cholesterol: Yes Chemotherapy: Yes Chest Pain: Yes Congestive Heart Failure: No COPD: No Cerebrovascular Accident: No Diabetes: No Diminished Hearing: No Deep Vein Thrombosis: Yes Endocrine: No Gastrointestinal Disorders: No GERD: Yes Genitourinary: No Headaches: Yes Hepatitis: No Hiatal Hernia: Yes Hypertension: Yes Kidney Stones: No Musculoskeletal: Yes Neurologic: No Psychiatric: No Reproductive: No Respiratory: No Immunizations Current: Yes Migraines: No Myocardial Infarction: No Radiation Therapy: Yes Renal Failure: No Seizures: No Sickle Cell Disease: No Sleep Apnea: No Ulcer: No PNEUMOCCOCAL Vaccine (Year): 2 ?: Not Menopausal: Yes Tubal Ligation: Yes Past Surgical History Abdominal Surgery: Yes (HERNIA REPAIR) Appendectomy: No Cardiac Surgery: No Cholecystectomy: No Endocrine Surgery: No Eye Surgery: No Genitourinary Surgery: No Gynecologic Surgery: Yes (LUMPECTOMY R BREAST) Neurologic Surgery: No Oral Surgery: No Thoracic Surgery: No Other Surgery: No Social History Alcohol Use: No Tobacco Use: No Substance Use: No Allergies-Medications (Allergen,Severity, Reaction): Coded Allergies: benazepril (Unverified Allergy, Intermediate, ANGIOEDEMA, 02/16/18) captopril (Unverified Allergy, Intermediate, ANGIOEDEMA, 02/16/18) enalaprilat (Unverified Allergy, Intermediate, ANGIOEDEMA, 02/16/18) fosinopril (Unverified Allergy, Intermediate, ANGIOEDEMA, 02/16/18) lisinopril (Unverified Allergy, Intermediate, ANGIOEDEMA, 02/16/18) quinapril (Unverified Allergy, Intermediate, ANGIOEDEMA, 02/16/18) Reported Meds & Prescriptions Reported Meds & Active Scripts Active [place] (Hydrocodone-Acetaminophen) 5 Mg-325 Mg Tab 1 Tab PO Q6H PRN Percocet (Oxycodone-Acetaminophen) 5-325 mg Tab 2 Tab PO Q4H PRN K-Tab (Potassium Chloride) 20 Meq Tab 20 Meq PO DAILY Chlorthalidone 25 Mg Tab 25 Mg PO DAILY Aspirin 81 Mg Chew 162 Mg CHEW DAILY Diltiazem ER 24 HR (Diltiazem HCl) 240 Mg Caper 240 Mg PO DAILY Clonidine (Clonidine HCl) 0.1 Mg Tab 0.1 Mg PO DAILY Reported Mobic (Meloxicam) 15 Mg Tab 15 Mg PO DAILY Flexeril (Cyclobenzaprine HCl) 10 Mg Tab 10 Mg PO TID PRN Rabeprazole (Rabeprazole Sodium) 20 Mg Tab 20 Mg PO DAILY Review of Systems Except as stated in HPI: all other systems reviewed are Neg General / Constitutional: No: Fever Eyes: No: Visual changes HENT: No: Headaches Cardiovascular: No: Chest Pain or Discomfort Respiratory: No: Shortness of Breath Physical Exam Narrative GENERAL: Alert and well-appearing 83-year-old female SKIN: Warm and dry. HEAD: Normocephalic. EYES: No injection or drainage. NECK: Supple, trachea midline. No JVD or lymphadenopathy. +TTP left trapezius muscle tenderness. +TTP midline spine CARDIOVASCULAR: Regular rate and rhythm without murmurs, gallops, or rubs. RESPIRATORY: Breath sounds equal bilaterally. No accessory muscle use. GASTROINTESTINAL: Abdomen soft, non-tender, nondistended. MUSCULOSKELETAL: No cyanosis, or edema. Normal strength and sensation in upper and lower extremities. Sharp/dull sensation intact. Equal hand grasp. 2+ distal pulses. BACK: Nontender without obvious deformity. No CVA tenderness. Data Data Last Documented VS Vital Signs Date Time Temp Pulse Resp B/P (MAP) Pulse Ox O2 Delivery O2 Flow Rate FiO2 02/16/18 16:49 98.5 64 16 181/89 (119) [address] Cerv Spine W/O Contrast (02/16/18 ) Acetaminophen (Tylenol) (02/16/18 19:30) Ketorolac Inj (Toradol Inj) (02/16/18 19:30) [facility] Medical Decision Making Medical Screen Exam Complete: Yes Emergency Medical Condition: Yes Differential Diagnosis Cervical strain, cervical spine fracture, torticollis Narrative Course This is an 83-year-old female here with left-sided neck pain 1 day. No injury or trauma. She has a normal neurologic exam. She has tenderness to the posterior aspect of the neck and left trapezius muscle. CT scan is negative for fracture although found multiple radiolucent lesions which could be nonspecific or metastasis. This was discussed at length with patient. She was given a copy of the CT report and agrees to follow-up with her doctor on Monday. She was given a shot of Toradol reports symptom improvement. She is stable and ready for discharge. Diagnosis Primary Impression: Neck pain Referrals: Primary Care Physician Additional Instructions: Medication as directed. Follow up with your primary doctor Monday. Discuss CT scan results with your physician Return if you have new or worsening symptoms Scripts Hydrocodone-Acetaminophen ([place]) 5 Mg-325 Mg Tab 1 TAB PO Q6H Y for PAIN, #12 TAB 0 Refills Prov: Nova Villanueva 02/16/18 Disposition: DISCHARGE HOME Condition: Stable Nova Villanueva Feb 16, 2018 19:22
[2018-02-16] MEDS ORDERED: KETOROLAC TROMETHAMINE 60 MG/2 ML (IM) VIAL IM ONE (19:30)
[2018-02-16] MEDS ORDERED: ACETAMINOPHEN 325 MG TAB PO ONE (19:30)
== END 2018-02-16 19:54 | disposition home or self-care (01) ==
LOC: PHEFT 16:41
DX: M54.2 Cervicalgia (principal); I48.91 Unspecified atrial fibrillation; M19.90 Unspecified osteoarthritis, unspecified site; I10 Essential (primary) hypertension; E78.00 Pure hypercholesterolemia, unspecified; K21.9 Gastro-esophageal reflux disease without esophagitis; Z86.718 Personal history of other venous thrombosis and embolism
CPT/HCPCS: 72125; 96372; 99283; J1885